=== PATIENT | male | born 1965 | race Caucasian/White ===

== ENCOUNTER → 2018-05-29 | Outpatient (CLI) | payer OTHER ==
[2014-12-31 12:20] VITALS: BP 127/92
[~2018-05-29] MED LIST: CEFTIN500 MG PO; ULTRAM 50MG TAB50 MG PO; ZOFRAN ODT8 MG PO
== END ==
LOC: RAD 09:15
DX: S61.542A Puncture wound with foreign body of left wrist, initial encounter (principal); L03.90 Cellulitis, unspecified; M19.042 Primary osteoarthritis, left hand

== ENCOUNTER → 2018-08-01 | Outpatient (CLI) | payer OTHER ==
[~2018-08-01] VITALS: Ht 182.9 cm; Wt 80.5 kg
[~2018-08-01] MED LIST changes: +NORCO 10-325 T1 EACH PO; +XANAX0.5 M1 PO
[2018-08-01 10:33] VITALS: BP 112/72
[2018-08-01 11:42] LABS: HEMATOCRIT 43.6 % (42.0-52.0); HEMOGLOBIN 14.4 g/dL (13.5-18.0); MEAN PLATELET VOLUME 10.2 fl (7.4-10.4); RED BLOOD COUNT 4.73 M/mm3 (4.20-5.60); RED CELL DISTRIBUTION WIDTH 13.7 % (11.5-14.5); WHITE BLOOD COUNT 20.6 K/mm3 (4.8-10.8)
[2018-08-01 11:57] LABS: ALBUMIN 4.1 g/dL (3.5-5.0); CALCIUM 9.1 mg/dL (8.4-10.2); POTASSIUM 3.9 mmol/L (3.6-5.0); TOTAL BILIRUBIN 0.6 mg/dL (0.2-1.3); TOTAL PROTEIN 7.8 g/dL (6.3-8.2)
[2018-08-01 12:05] VITALS: BP 121/76
--- NOTE | 2018-08-01 13:11 | NUR ---
Patient alert and oriented. Reports feeling "a little bit" better. States headache is not as bad. Transferred to [place] via EMS. NS infusing through IV to right forearm at 125 ml/hr. and daughter present at bedside. Out of facility via stretcher with EMS at this time.
--- NOTE | 2018-08-01 13:17 | NUR ---
Report called to [facility] charge nurse Dorina.
== END ==
LOC: AMSURD 10:09
PROVIDERS: Nurse Practitioner
DX: R50.9 Fever, unspecified (principal); R05 Cough
CPT/HCPCS: J7030

== ENCOUNTER → 2018-08-05 | Outpatient (CLI) | payer BC ==
[2018-08-01 12:05] VITALS: BP 121/76
[2018-08-05 11:26] LABS: ALBUMIN 4.2 g/dL (3.5-5.0); DIRECT BILIRUBIN 0.3 mg/dL (0.0-0.4); TOTAL BILIRUBIN 0.3 mg/dL (0.2-1.3); TOTAL PROTEIN 7.9 g/dL (6.3-8.2)
== END ==
LOC: LAB 10:53
DX: Z51.81 Encounter for therapeutic drug level monitoring (principal)

== ENCOUNTER → 2018-08-19 | Outpatient (CLI) | payer BC ==
[2018-08-01 12:05] VITALS: BP 121/76
== END ==
LOC: LAB 09:34
DX: L02.91 Cutaneous abscess, unspecified (principal); B99.9 Unspecified infectious disease

== ENCOUNTER → 2018-08-31 | Outpatient (CLI) | payer BC ==
[2018-08-01 12:05] VITALS: BP 121/76
== END ==
LOC: RAD 08:38 → LAB 08:38
DX: R22.31 Localized swelling, mass and lump, right upper limb (principal)

== ENCOUNTER 2019-04-24 14:00 | Outpatient (RCR) | payer BC ==
[2018-08-01 12:05] VITALS: BP 121/76
== END 2019-04-24 14:30 | disposition still patient (30) ==
LOC: OT 14:00
DX: S56.429D Laceration of extensor muscle, fascia and tendon of unspecified finger at forearm level, subsequent encounter (principal); S61.209D Unspecified open wound of unspecified finger without damage to nail, subsequent encounter

== ENCOUNTER → 2020-03-09 | Outpatient (CLI) | payer BC ==
[2018-08-01 12:05] VITALS: BP 121/76
== END ==
LOC: RAD 09:04
DX: M50.322 Other cervical disc degeneration at C5-C6 level (principal); M48.02 Spinal stenosis, cervical region

== ENCOUNTER → 2020-03-16 | Outpatient (CLI) | payer BC ==
[2018-08-01 12:05] VITALS: BP 121/76
== END ==
LOC: RAD 09:05
DX: M51.34 Other intervertebral disc degeneration, thoracic region (principal)

== ENCOUNTER 2020-05-27 12:59 | Emergency (ER) | payer BC ==
[~2020-05-27] VITALS: Ht 177.8 cm; Wt 86.4 kg
[2020-05-27 14:22] VITALS: BP 147/113
== END 2020-05-27 14:11 | disposition home or self-care (01) ==
LOC: ED 12:59
DX: S90.121A Contusion of right lesser toe(s) without damage to nail, initial encounter (principal); X58.XXXA Exposure to other specified factors, initial encounter

== ENCOUNTER → 2020-09-28 | Outpatient (CLI) | payer BC | LOC: RAD 14:17 | DX: M50.322 Other cervical disc degeneration at C5-C6 level (principal) ==

== ENCOUNTER 2020-11-03 13:58 | Outpatient (RCR) | payer BC | END 2021-02-01 | disposition home or self-care (01) | LOC: PT | DX: G95.89 Other specified diseases of spinal cord (principal); M48.02 Spinal stenosis, cervical region ==

== ENCOUNTER 2021-01-17 14:30 | Outpatient (RCR) | payer BC | END 2021-02-01 17:00 | disposition still patient (30) | LOC: OT 14:30 | DX: R29.898 Other symptoms and signs involving the musculoskeletal system (principal) ==

== ENCOUNTER → 2021-12-01 | Outpatient (CLI) | payer BC | LOC: RAD 14:25 | DX: Z98.1 Arthrodesis status (principal) ==

== ENCOUNTER 2022-10-16 09:12 | Outpatient (RCR) | payer BC | END 2022-10-27 | disposition home or self-care (01) | LOC: PT | DX: M17.11 Unilateral primary osteoarthritis, right knee (principal) ==